=== PATIENT | female | born 1960 | race Caucasian/White ===

== ENCOUNTER 2018-08-20 19:39 | Outpatient (CLI) | payer OTHER | END 2018-08-20 20:13 | disposition home or self-care (01) | LOC: SRD 19:39 | PROVIDERS: ATTEND Internal Medicine | DX: M47.892 Other spondylosis, cervical region (principal) | CPT/HCPCS: 72040-TC ==

== ENCOUNTER 2023-06-21 09:29 | Outpatient (CLI) | payer OTHER | END 2023-06-21 18:58 | disposition home or self-care (01) | LOC: SMA 09:29 | DX: R92.2 Inconclusive mammogram (principal) | CPT/HCPCS: 76642; 77065 ==

== ENCOUNTER 2023-12-17 12:29 | Outpatient (CLI) | payer OTHER ==
[2023-12-17 13:54] LABS: BASOPHILS % (AUTO) 0.8 % (0.0-2.0); EOSINOPHILS # (AUTO) 0.1 K/uL (0.0-0.4); EOSINOPHILS % (AUTO) 2.8 % (0.0-4.0); HEMATOCRIT 43.8 % (36-48); HEMOGLOBIN 15.3 g/dL (12.0-16.0); LYMPHOCYTES # (AUTO) 1.1 K/uL (1.0-5.5); LYMPHOCYTES % (AUTO) 27.6 % (20.5-51.5); MEAN CORPUSCULAR HEMOGLOBIN 35 pg (27-31); MEAN CORPUSCULAR HGB CONC 35 % (32-36); MEAN CORPUSCULAR VOLUME 99 fL (79.0-98.0); MONOCYTES # (AUTO) 0.3 K/uL (0.0-1.0); MONOCYTES % (AUTO) 6.2 % (1.7-9.3); NEUTROPHILS # (AUTO) 2.6 K/uL (1.8-7.7); NEUTROPHILS % (AUTO) 62.6 % (40.0-70.0); PLATELET COUNT (AUTO) 270 K/uL (130-430); RED BLOOD CELL COUNT(AUTO) 4.43 MIL/uL (4.2-6.2); RED CELL DISTRIBUTION WIDTH 12.8 % (9.0-15.0); WHITE BLOOD COUNT (AUTO) 4.1 K/uL (4.8-10.8)
[2023-12-17 13:58] LABS: BILIRUBIN,URINE NEGATIVE (NEGATIVE); BLOOD, URINE 2+ (NEGATIVE); CLARITY/URINE CLEAR (CLEAR); COLOR,URINE YELLOW (YELLOW); GLUCOSE,URINE NEGATIVE (NEGATIVE); KETONES,URINE NEGATIVE (NEGATIVE); LEUKOCYTE ESTERASE ,URINE NEGATIVE (NEGATIVE); NITRITE, URINE NEGATIVE (NEGATIVE); PROTEIN URINE NEGATIVE (NEGATIVE); UROBILINOGEN,URINE 0.2 (0.2-1.0)
[2023-12-17 14:07] LABS: BACTERIA,URINE None Seen /HPF (None Seen); RBC,URINE 0-3 /HPF (0-3); WBC,URINE NONE SEEN /HPF (0-3)
[2023-12-17 14:10] LABS: HEMOGLOBIN A1C 5.17 % (<5.7)
[2023-12-17 14:22] LABS: ALBUMIN 3.7 g/dL (3.4-4.8); CALCIUM 9.3 mg/dL (8.4-11.0); CREATININE 0.78 mg/dL (0.55-1.30); POTASSIUM 3.7 mmol/L (3.5-5.1); THYROID STIMULATING HORMONE 0.94 uIu/mL (0.34-4.82); TOTAL BILIRUBIN 0.4 mg/dL (0.0-1.0); TOTAL PROTEIN, SERUM 7.8 g/dL (6.4-8.3)
== END 2023-12-17 18:46 | disposition home or self-care (01) ==
LOC: SLB 12:29
PROVIDERS: ATTEND Internal Medicine
DX: I10 Essential (primary) hypertension (principal); E78.5 Hyperlipidemia, unspecified; E55.9 Vitamin D deficiency, unspecified; E56.9 Vitamin deficiency, unspecified
CPT/HCPCS: 36415; 80053; 80061; 81000; 81001; 81015; 82306; 82607; 83037; 84439; 84443; 85025

== ENCOUNTER 2023-12-19 12:03 | Outpatient (CLI) | payer OTHER | END 2023-12-19 18:37 | disposition home or self-care (01) | LOC: SRD 12:03 | PROVIDERS: ATTEND Internal Medicine | DX: K52.9 Noninfective gastroenteritis and colitis, unspecified (principal); K43.2 Incisional hernia without obstruction or gangrene; M51.46 Schmorl's nodes, lumbar region; M47.816 Spondylosis without myelopathy or radiculopathy, lumbar region; R10.31 Right lower quadrant pain; R91.8 Other nonspecific abnormal finding of lung field; I70.0 Atherosclerosis of aorta; M81.0 Age-related osteoporosis without current pathological fracture; M41.84 Other forms of scoliosis, thoracic region; M47.814 Spondylosis without myelopathy or radiculopathy, thoracic region | CPT/HCPCS: 74177; 71046; 76376; Q9967 ==

== ENCOUNTER 2024-02-13 10:43 | Outpatient (CLI) | payer OTHER | END 2024-02-13 20:44 | disposition home or self-care (01) | LOC: SMI 10:43 | PROVIDERS: ATTEND Internal Medicine | DX: M47.817 Spondylosis without myelopathy or radiculopathy, lumbosacral region (principal); M48.07 Spinal stenosis, lumbosacral region; M47.816 Spondylosis without myelopathy or radiculopathy, lumbar region; M48.061 Spinal stenosis, lumbar region without neurogenic claudication; M51.36 Other intervertebral disc degeneration, lumbar region; M51.37 Other intervertebral disc degeneration, lumbosacral region | CPT/HCPCS: 72148 ==

== ENCOUNTER 2024-04-17 11:04 | Outpatient (CLI) | payer OTHER ==
[2024-04-17] MEDS ORDERED: GADOTERATE MEGLUMINE 7.5 MMOL/15 ML VIAL IV ONE (11:28)
== END 2024-04-17 18:46 | disposition home or self-care (01) ==
LOC: SMI 11:04
PROVIDERS: ATTEND Internal Medicine
DX: R19.09 Other intra-abdominal and pelvic swelling, mass and lump (principal); M51.36 Other intervertebral disc degeneration, lumbar region; M47.816 Spondylosis without myelopathy or radiculopathy, lumbar region
CPT/HCPCS: 72197; A9575

== ENCOUNTER 2024-05-20 10:54 | Outpatient (CLI) | payer OTHER | END 2024-05-20 21:13 | disposition home or self-care (01) | LOC: SUS 10:54 | PROVIDERS: ATTEND Internal Medicine | DX: R19.00 Intra-abdominal and pelvic swelling, mass and lump, unspecified site (principal) | CPT/HCPCS: 76856 ==

== ENCOUNTER 2024-07-31 08:00 | Outpatient (CLI) | payer OTHER | END 2024-07-31 15:47 | disposition home or self-care (01) | LOC: SMA 08:00 | PROVIDERS: ATTEND Internal Medicine | DX: Z12.31 Encounter for screening mammogram for malignant neoplasm of breast (principal); R92.333 Mammographic heterogeneous density, bilateral breasts | CPT/HCPCS: 77067 ==